=== PATIENT | female | born 1950 | race Caucasian/White ===

== ENCOUNTER 2017-06-02 15:18 | Emergency (ER) | payer MEDICARE, OTHER ==
[~2017-06-02] VITALS: Ht 170.2 cm; Wt 96.0 kg
[~2017-06-02 15:18] MED LIST: ASPI325T PO; CALC600T34 PO; IRON18TA2 PO; PAXI20TA26 PO; PRAV40 PO; TAB-TAB PO; VITA400D PO; VITA50TA10 PO
[2017-06-02 15:34] VITALS: BP 131/83; PULSE 108; RESP 18; TEMP 98.5; O2SAT 98
[2017-06-02] MEDS ORDERED: ASPI-183 PO (15:52)
[2017-06-02] MEDS ORDERED: LOVA40TA PO (15:52)
[2017-06-02] MEDS ORDERED: PAXI10TA8 PO (15:52)
[2017-06-02] MEDS ORDERED: SODIUM CHLOR 0.9% 1000 ML INJ 1,000 ML IV SCH (15:56)
[2017-06-02] MEDS ORDERED: SODIUM CHLORIDE 0.9% FLUSH 10 ML FLUSH IV FLUSH PRN (16:00)
[2017-06-02] MEDS ORDERED: PROCHLORPERAZINE INJ 10 MG/2 ML VIAL IV PUSH ONE (16:00)
--- NOTE | 2017-06-02 16:05 | PD ---
HPI Chief Complaint: GI Complaint Time Seen by Provider: 15:46 Travel History International Travel<30 days: No Contact w/Intl Traveler<30days: No Traveled to known affect area: No History of Present Illness HPI 67-year-old female here for evaluation of nausea and vomiting since around 2:00 AM. Patient subsequently developed a headache while vomiting. Patient reports several episodes of nonbloody/nonbilious emesis as well as nonbloody bowel movements. She reports that her bowel movements are dark. No recent antibiotic use. No recent travel. She has abdominal discomfort only when she vomits or has a bowel movement. She was seen at an urgent care facility today where she was given a dose of Zofran and advised to present to the emergency department for further treatment and evaluation. PFSH Past Medical History Arthritis: No Asthma: No Autoimmune Disease: No Blood Disorders: No Anxiety: Yes Depression: Yes Heart Rhythm Problems: No Cancer: No Cardiovascular Problems: Yes (HEART MURMUR) High Cholesterol: Yes Chemotherapy: No Congestive Heart Failure: No COPD: No Cerebrovascular Accident: No Diabetes: No Diminished Hearing: No Endocrine: No GERD: No Glaucoma: No Genitourinary: No Headaches: No Hepatitis: No Hiatal Hernia: No Hypertension: No Immune Disorder: No Kidney Stones: No Musculoskeletal: Yes (HERNIATED DISCS LUMBAR AND THORACIC, ARTHRITIS LEFT KNEE) Neurologic: No Psychiatric: No Reproductive: No Respiratory: Yes (SLEEP APNEA--CPAP) Immunizations Current: No Myocardial Infarction: No Radiation Therapy: No Renal Failure: No Seizures: No Sickle Cell Disease: No Sleep Apnea: Yes Thyroid Disease: No Ulcer: No Influenza Vaccination: Yes ?: Not Menopausal: Yes Past Surgical History Abdominal Surgery: Yes (CHOLECYSTECTOMY) AICD: No Cardiac Surgery: No Cholecystectomy: Yes Ear Surgery: No Endocrine Surgery: No Eye Surgery: No Genitourinary Surgery: No Gynecologic Surgery: Yes (TOTAL HYSTERECTOMY 1997 WITH BLADDER SUSPENSION) Hysterectomy: Yes (1997) Joint Replacement: Yes (TOTAL KNEE REPLACEMENT LEFT) Oral Surgery: No Pacemaker: No Thoracic Surgery: No Other Surgery: Yes Social History Alcohol Use: No Tobacco Use: No Substance Use: No Allergies-Medications (Allergen,Severity, Reaction): Coded Allergies: Sulfa (Sulfonamide Antibiotics) (Unverified Allergy, Severe, n/v, 06/02/17) bacitracin (Unverified Allergy, Severe, Hives, 06/02/17) cephalexin (Unverified Allergy, Severe, RED RASH; BLISTERS; UPSET STOMACH , 06/02/17) metoclopramide (Unverified Allergy, Severe, NAUSEA, 06/02/17) naproxen (Unverified Allergy, Severe, EXTREME NAUSEA, 06/02/17) polymyxin B (Unverified Allergy, Severe, Hives, 06/02/17) tramadol (Unverified Allergy, Unknown, ITCHING, 06/02/17) VAGINAL SWELLING AND ITCHING Reported Meds & Prescriptions Reported Meds & Active Scripts Active Reported Paxil (Paroxetine HCl) 10 Mg Tab 20 Mg PO HS Aspirin 325 Mg Tab 325 Mg PO HS Lovastatin 40 Mg Tab 40 Mg PO HS Review of Systems Except as stated in HPI: all other systems reviewed are Neg Physical Exam Narrative GENERAL: Well-developed, well-nourished, no apparent distress. SKIN: Focused skin assessment warm/dry. HEAD: Atraumatic. Normocephalic. EYES: Pupils equal and round. No scleral icterus. No injection or drainage. ENT: Mucous membranes pink and dry. NECK: Trachea midline. No JVD. CARDIOVASCULAR: Regular rate and rhythm. RESPIRATORY: No accessory muscle use. Clear to auscultation. Breath sounds equal bilaterally. GASTROINTESTINAL: Abdomen soft, non-tender, nondistended. MUSCULOSKELETAL: No obvious deformities. No clubbing. No cyanosis. No edema. NEUROLOGICAL: Awake and alert. No obvious cranial nerve deficits. Motor grossly within normal limits. Normal speech. PSYCHIATRIC: Appropriate mood and affect; insight and judgment normal. Data Data Last Documented VS Vital Signs Date Time Temp Pulse Resp B/P (MAP) Pulse Ox O2 Delivery O2 Flow Rate FiO2 06/02/17 16:08 90 18 167/79 (108) 98 Room Air 06/02/17 15:34 98.5 Orders Orders Complete Blood Count With Diff (06/02/17 15:56) Comprehensive Metabolic Panel (06/02/17 15:56) Lipase (06/02/17 15:56) Prothrombin Time / Inr (Pt) (06/02/17 15:56) Act Partial Throm Time (Ptt) (06/02/17 15:56) Iv Access Insert/Monitor (06/02/17 15:56) Ecg Monitoring (06/02/17 15:56) Oximetry (06/02/17 15:56) Sodium Chlor 0.9% 1000 Ml Inj (Ns 1000 M (06/02/17 15:56) Sodium Chloride 0.9% Flush (Ns Flush) (06/02/17 16:00) Prochlorperazine Inj (Compazine Inj) (06/02/17 16:00) Influenzae A/B Antigen (06/02/17 15:56) Acetaminophen (Tylenol) (06/02/17 17:00) Labs Laboratory Tests Test 06/02/17 15:58 White Blood Count 10.3 TH/MM3 Red Blood Count 4.76 MIL/MM3 Hemoglobin 13.9 GM/DL Hematocrit 41.3 % Mean Corpuscular Volume 86.8 FL Mean Corpuscular Hemoglobin 29.1 PG Mean Corpuscular Hemoglobin Concent 33.6 % Red Cell Distribution Width 12.3 % Platelet Count 216 TH/MM3 Mean Platelet Volume 8.2 FL CBC Comment AUTO DIFF Differential Total Cells Counted 100 Neutrophils % (Manual) 78 % Band Neutrophils % 11 % Lymphocytes % 5 % Monocytes % 5 % Basophils % 1 % Neutrophils # (Manual) 9.2 TH/MM3 Differential Comment FINAL DIFF MANUAL Platelet Estimate NORMAL Platelet Morphology Comment NORMAL Red Cell Morphology Comment NORMAL Prothrombin Time 10.5 SEC Prothromb Time International Ratio 1.0 RATIO Activated Partial Thromboplast Time 24.0 SEC Blood Urea Nitrogen 22 MG/DL Creatinine 1.00 MG/DL Random Glucose 123 MG/DL Total Protein 8.5 GM/DL Albumin 4.0 GM/DL Calcium Level 8.8 MG/DL Alkaline Phosphatase 89 U/L Aspartate Amino Transf (AST/SGOT) 18 U/L Alanine Aminotransferase (ALT/SGPT) 29 U/L Total Bilirubin 0.5 MG/DL Sodium Level 138 MEQ/L Potassium Level 3.5 MEQ/L Chloride Level 104 MEQ/L Carbon Dioxide Level 21.9 MEQ/L Anion Gap 12 MEQ/L Estimat Glomerular Filtration Rate 56 ML/MIN Lipase 81 U/L [facility] [place] Medical Decision Making Medical Screen Exam Complete: Yes Emergency Medical Condition: Yes Differential Diagnosis Gastroenteritis, dehydration Narrative Course Vital signs reviewed. CBC: WBC 10.3, hemoglobin 13.9, hematocrit 41.3, platelets 216, neutrophils 70% , band neutrophils 11%. CMP is remarkable for BUN 22, creatinine 1, GFR 56, otherwise unremarkable. Lipase is 81. Influenza is negative. The patient was given a liter of normal saline IV as well as a dose of IV Compazine and oral Tylenol. On reassessment she feels significantly improved and her headache has resolved. She is tolerating clear liquids in the emergency department. She states that there are 2 other coworkers who had similar symptoms at work. She likely has a gastroenteritis. She is stable for discharge home with outpatient follow-up with her primary care physician this week. She was advised on when to return to the emergency department. She verbalizes understanding and agreement with plan. Diagnosis Primary Impression: Gastroenteritis Referrals: Primary Care Physician 3 days Additional Instructions: Follow-up with your primary care physician this week. Stay hydrated with plenty of fluids. Return to the emergency department for worsening symptoms or any other concerns. Scripts Ondansetron Odt (Zofran Odt) 4 Mg Tab 4 MG SL Q8HR Y for Nausea/Vomiting, #30 TAB 0 Refills Prov: Gary Greer MD 06/02/17 Disposition: 01 DISCHARGE HOME Condition: Stable Gary Greer MD Jun 02, 2017 16:05
[2017-06-02 16:08] VITALS: BP 167/79; PULSE 90; RESP 18; O2SAT 98
[2017-06-02 16:10] LABS: HEMATOCRIT 41.3 % (35.0-46.0); HEMOGLOBIN 13.9 GM/DL (11.6-15.3); MEAN CELL VOLUME 86.8 FL (80.0-100.0); MEAN CORPUSCULAR HEMOGLOBIN 29.1 PG (27.0-34.0); MEAN CORPUSCULAR HGB CONC 33.6 % (32.0-36.0); MEAN PLATELET VOLUME 8.2 FL (7.0-11.0); PLATELET COUNT 216 TH/MM3 (150-450); RED BLOOD COUNT 4.76 MIL/MM3 (4.00-5.30); RED CELL DISTRIBUTION WIDTH 12.3 % (11.6-17.2); WHITE BLOOD COUNT 10.3 TH/MM3 (4.0-11.0)
[2017-06-02 16:26] LABS: CHLORIDE 104 MEQ/L (98-107); SODIUM (NA) 138 MEQ/L (136-145)
[2017-06-02 16:30] LABS: BICARBONATE 21.9 MEQ/L (21.0-32.0); BLOOD UREA NITROGEN 22 MG/DL (7-18); CALCIUM 8.8 MG/DL (8.5-10.1); GLUCOSE,RANDOM 123 MG/DL (74-106)
[2017-06-02 16:32] LABS: PROTHROMBIN TIME - PATIENT 10.5 SEC (9.8-11.6)
[2017-06-02 16:33] LABS: ALT (GPT) 29 U/L (10-53); AST (GOT) 18 U/L (15-37); GLOMERULAR FILTRATION RATE 56 ML/MIN (>89)
[2017-06-02 16:35] LABS: TOTAL BILIRUBIN ADULT 0.5 MG/DL (0.2-1.0); TOTAL PROTEIN 8.5 GM/DL (6.4-8.2)
[2017-06-02 16:36] LABS: ALKALINE PHOSPHATASE 89 U/L (45-117)
[2017-06-02 16:53] LABS: BANDS 11 % (0-6); BASOPHILS 1 % (0-2); LYMPHOCYTES 5 % (9-44); MONOCYTES 5 % (0-8); NEUTROPHIL # MANUAL DIFF 9.2 TH/MM3 (1.8-7.7); POLYS (SEG NEUTROPHILS) 78 % (16-70)
[2017-06-02] MEDS ORDERED: ACETAMINOPHEN 325 MG TAB PO ONE (17:00)
[2017-06-02 18:05] VITALS: RESP 18
[2017-06-02] MEDS ORDERED: ZOFR4TAB3 SL (18:06)
[2017-06-02 18:11] VITALS: BP 150/67
== END 2017-06-02 18:20 | disposition home or self-care (01) ==
LOC: PHED 15:18
DX: K52.9 Noninfective gastroenteritis and colitis, unspecified (principal); R51 Headache; R19.5 Other fecal abnormalities; E78.00 Pure hypercholesterolemia, unspecified; F41.8 Other specified anxiety disorders; G47.30 Sleep apnea, unspecified; Z86.79 Personal history of other diseases of the circulatory system; Z87.39 Personal history of other diseases of the musculoskeletal system and connective tissue
CPT/HCPCS: 80053; 83690; 85007; 85027; 85610; 85730; 87804; 96361; 96374; 99284; J0780; J7030